=== PATIENT | male | born 1985 | race Caucasian/White ===

== ENCOUNTER 2024-02-18 05:03 | Emergency (ER) | payer MEDICAID ==
[~2024-02-18] VITALS: Ht 177.8 cm; Wt 99.7 kg
[2024-02-18 05:20] VITALS: O2SAT 97
[2024-02-18] MEDS ORDERED: AMOX1TAB16 PO (06:26)
[2024-02-18] MEDS ORDERED: T3 PO (06:26)
[2024-02-18] MEDS ORDERED: IBUP-2030 PO (06:26)
[2024-02-18] MEDS ORDERED: LORAZEPAM 1MG TABLET PO ONE (06:30)
[2024-02-18] MEDS: IBUPROFEN 800MG TABLET PO ONE (06:30)
[2024-02-18] MEDS: IBUPROFEN 800MG TABLET PO NR (06:45)
[2024-02-18 06:48] VITALS: BP 135/76; PULSE 67; RESP 20; TEMP 98.6
== END 2024-02-18 06:55 | disposition home or self-care (01) ==
LOC: ER 05:03
DX: K08.89 Other specified disorders of teeth and supporting structures (principal)
CPT/HCPCS: 99283